=== PATIENT | female | born 1995 | race Caucasian/White ===

== ENCOUNTER 2020-08-29 17:49 | Emergency (ER) | payer MEDICAID ==
[2020-08-29] MEDS ORDERED: ZYRTEC10 M3 PO (18:07)
[2020-08-29] MEDS ORDERED: IPRATROPIUM BROM3 M1 IH (18:07)
[2020-08-29] MEDS ORDERED: ATARAX (18:07)
[2020-08-29] MEDS ORDERED: SINGULAIR PO (18:07)
[2020-08-29] MEDS ORDERED: ALBUTEROL2.5 MG/3 M IH (18:08)
[2020-08-29 18:46] LABS: EOS % 7.3 % (1.0-5.0); HEMOGLOBIN 12.5 g/dL (12.5-16.0); LYMPH# 2.3 (1.50-4.00); MEAN CELL VOLUME 78 fl (78-100); MEAN CORPUSCULAR HEMOGLOBIN 26 pg (27-31); MEAN CORPUSCULAR HGB CONC 33 g/dL (33-37); MEAN PLATELET VOLUME 10.5 fl (7.4-10.4); MONO # 1.3 (0.20-0.80); PLATELET COUNT 318 K/mm3 (130-400); RED BLOOD COUNT 4.89 M/mm3 (4.10-5.30); WHITE BLOOD COUNT 14.7 K/mm3 (4.8-10.8)
[2020-08-29 18:47] LABS: EOS # 1.1 (0.04-0.40); NEU # 10.1 (1.40-6.50); RED CELL DISTRIBUTION WIDTH 18.4 % (11.5-14.5)
[2020-08-29 18:59] LABS: CALCIUM 9.2 mg/dL (8.3-10.5)
[2020-08-29 19:00] LABS: TOTAL PROTEIN 6.7 g/dL (6.4-8.3)
[2020-08-29 19:02] LABS: TOTAL BILIRUBIN 0.8 mg/dL (0.2-1.2)
[2020-08-29 19:58] LABS: URINE APPEARANCE CLEAR; URINE BILIRUBIN NEGATIVE (NEGATIVE); URINE BLOOD NEGATIVE (NEGATIVE); URINE COLOR YELLOW; URINE GLUCOSE NEGATIVE (NEGATIVE); URINE KETONE NEGATIVE (NEGATIVE); URINE LEUKOCYTE ESTERASE NEGATIVE (NEGATIVE); URINE NITRATE NEGATIVE (NEGATIVE); URINE PROTEIN(semi-quant) TRACE mg/dL (NEGATIVE); URINE UROBILINOGEN NORMAL (NORMAL); URINE WBC 0-1 /hpf (0-3)
[2020-08-29] MEDS ORDERED: PREDNISONE20 MG PO (20:56)
[2020-08-29 21:02] VITALS: BP 115/82
[2020-08-30] MEDS ORDERED: PRILOSEC 20MG20 MG PO (02:12)
== END 2020-08-29 21:02 | disposition home or self-care (01) ==
LOC: ED 17:49
PROVIDERS: Nurse Practitioner
DX: O99.511 Diseases of the respiratory system complicating pregnancy, first trimester (principal); J45.901 Unspecified asthma with (acute) exacerbation; Z3A.08 8 weeks gestation of pregnancy; Z87.891 Personal history of nicotine dependence
CPT/HCPCS: J2405; J2930; J7030

== ENCOUNTER 2022-01-31 13:21 | Emergency (ER) | payer MEDICAID ==
[~2022-01-31] VITALS: Ht 160 cm; Wt 60.0 kg
[~2022-01-31 13:21] MED LIST: ALBUTEROL2.5 MG/3 M IH; ATARAX; IPRATROPIUM BROM3 M1 IH; PREDNISONE20 MG PO; PRILOSEC 20MG20 MG PO; SINGULAIR PO; ZYRTEC10 M3 PO
[2022-01-31] MEDS ORDERED: PREDNISONE20 M1 PO (14:05)
[2022-01-31] MEDS ORDERED: PREDNISONE20 MG PO (15:37)
[2022-01-31 16:00] VITALS: BP 143/85
== END 2022-01-31 15:55 | disposition home or self-care (01) ==
LOC: ED 13:21
DX: R05.9 Cough, unspecified (principal)
CPT/HCPCS: J2930

== ENCOUNTER 2022-04-24 06:57 | Emergency (ER) | payer MEDICAID ==
[~2022-04-24] VITALS: Ht 160 cm; Wt 60.0 kg
[~2022-04-24 06:57] MED LIST changes: +PREDNISONE20 M1 PO
[2022-04-24 07:25] LABS: BASO # 0.03 K/mm3 (0.02-0.10); EOS # 0.64 K/mm3 (0.04-0.40); EOS % 9.2 % (1.0-5.0); HEMATOCRIT 41.8 % (37.0-47.0); HEMOGLOBIN 13.5 g/dL (12.5-16.0); LYMPH# 2.62 K/mm3 (1.50-4.00); MEAN CELL VOLUME 84 fl (78-100); MEAN CORPUSCULAR HEMOGLOBIN 27 pg (27-31); MEAN CORPUSCULAR HGB CONC 32 g/dL (33-37); MEAN PLATELET VOLUME 11.3 fl (7.4-10.4); MONO # 0.57 K/mm3 (0.20-0.80); NEU # 3.05 K/mm3 (1.40-6.50); PLATELET COUNT 253 K/mm3 (130-400); RED BLOOD COUNT 4.99 M/mm3 (4.10-5.30); RED CELL DISTRIBUTION WIDTH 14.7 % (11.5-14.5); WHITE BLOOD COUNT 6.9 K/mm3 (4.8-10.8)
[2022-04-24 07:33] LABS: POTASSIUM 4.3 mmol/L (3.5-5.1)
[2022-04-24 07:34] LABS: CALCIUM 9.4 mg/dL (8.3-10.5)
[2022-04-24] MEDS ORDERED: SINGULAIR 110 MG/TAB PO (07:34)
[2022-04-24] MEDS ORDERED: SERTRALINE50 MG PO (07:34)
[2022-04-24 07:35] LABS: TOTAL PROTEIN 6.5 g/dL (6.4-8.3)
[2022-04-24] MEDS ORDERED: RT SPIRIVA INH18 MCG IH (07:35)
[2022-04-24] MEDS ORDERED: PROAIR HFA0.09 MG/AC IH (07:35)
[2022-04-24 07:37] LABS: TOTAL BILIRUBIN 0.5 mg/dL (0.2-1.2)
[2022-04-24 07:50] LABS: URINE APPEARANCE CLEAR; URINE BILIRUBIN NEGATIVE (NEGATIVE); URINE BLOOD NEGATIVE (NEGATIVE); URINE COLOR YELLOW; URINE GLUCOSE NEGATIVE (NEGATIVE); URINE KETONE NEGATIVE (NEGATIVE); URINE LEUKOCYTE ESTERASE NEGATIVE (NEGATIVE); URINE MUCUS PRESENT (NOT PRESENT); URINE NITRATE NEGATIVE (NEGATIVE); URINE PROTEIN(semi-quant) NEGATIVE (NEGATIVE); URINE UROBILINOGEN NORMAL (NORMAL)
[2022-04-24 10:15] VITALS: BP 112/62
== END 2022-04-24 10:35 | disposition short-term general hospital (02) ==
LOC: ED 06:57
PROVIDERS: Nurse Practitioner
DX: J45.901 Unspecified asthma with (acute) exacerbation (principal); Z91.040 Latex allergy status; Z20.822 Contact with and (suspected) exposure to COVID-19
CPT/HCPCS: J2060; J2405; J2930; J7030

== ENCOUNTER 2023-11-26 01:42 | Emergency (ER) | payer MEDICAID ==
[~2023-11-26] VITALS: Ht 162.6 cm; Wt 68.2 kg
[~2023-11-26 01:42] MED LIST changes: +ATIVAN0.5 MG PO; +BUSPIRONE5 MG PO; +LURASIDONE HCL20 MG PO; +PROAIR HFA0.09 MG/AC IH; +RT SPIRIVA INH18 MCG IH; +SERTRALINE50 MG PO; +SINGULAIR 110 MG/TAB PO
[2023-11-26] MEDS ORDERED: LEXAPRO5 MG PO (02:16)
[2023-11-26] MEDS ORDERED: PREDNISONE20 MG PO (03:20)
[2023-11-26 03:30] VITALS: BP 127/82
== END 2023-11-26 03:30 | disposition home or self-care (01) ==
LOC: ED 01:42
DX: J45.901 Unspecified asthma with (acute) exacerbation (principal); Z91.040 Latex allergy status
CPT/HCPCS: J7512

== ENCOUNTER 2023-12-08 16:11 | Emergency (ER) | payer MEDICAID ==
[~2023-12-08] VITALS: Ht 162.6 cm; Wt 68.2 kg
[~2023-12-08 16:11] MED LIST changes: +LEXAPRO5 MG PO
[2023-12-08 16:53] LABS: BASO # 0.02 K/mm3 (0.02-0.10); EOS # 0.65 K/mm3 (0.04-0.40); EOS % 7.2 % (1.0-5.0); HEMATOCRIT 38.3 % (37.0-47.0); HEMOGLOBIN 12.3 g/dL (12.5-16.0); LYMPH# 2.03 K/mm3 (1.50-4.00); MEAN CELL VOLUME 85 fl (78-100); MEAN CORPUSCULAR HEMOGLOBIN 27 pg (27-31); MEAN CORPUSCULAR HGB CONC 32 g/dL (33-37); MEAN PLATELET VOLUME 9.9 fl (7.4-10.4); MONO # 0.64 K/mm3 (0.20-0.80); NEU # 5.68 K/mm3 (1.40-6.50); PLATELET COUNT 262 K/mm3 (130-400); RED BLOOD COUNT 4.52 M/mm3 (4.10-5.30); RED CELL DISTRIBUTION WIDTH 14.6 % (11.5-14.5); WHITE BLOOD COUNT 9.1 K/mm3 (4.8-10.8)
[2023-12-08] MEDS ORDERED: RT SPIRIVA INH18 MCG (17:22)
[2023-12-08] MEDS ORDERED: DULERA1 ARO (17:22)
[2023-12-08] MEDS ORDERED: PREDNISONE20 M1 PO (17:52)
[2023-12-08 18:57] VITALS: BP 119/75
== END 2023-12-08 18:58 | disposition home or self-care (01) ==
LOC: ED 16:11
PROVIDERS: Family Medicine
DX: J45.901 Unspecified asthma with (acute) exacerbation (principal); Z91.040 Latex allergy status

== ENCOUNTER 2024-02-09 19:20 | Emergency (ER) | payer MEDICAID ==
[~2024-02-09 19:20] MED LIST changes: +DULERA1 ARO; +RT SPIRIVA INH18 MCG
[2024-02-09] MEDS ORDERED: methylPREDNISolone Sod Succ 125 MG/2 ML VIAL IV ONE (19:45)
[2024-02-09] MEDS ORDERED: Azithromycin 500 MG in NS 250 ML IV ONE (19:45)
[2024-02-09] MEDS ORDERED: MAGNESIUM SULFATE IV ONE (19:45)
[2024-02-09] MEDS ORDERED: DEXTROSE IV ONE (19:45)
[2024-02-09] MEDS ORDERED: Albuterol/Ipratropium 3 MG-0.5 MG/3 ML Neb Soln IH ONE ×2 (19:45→20:30)
[2024-02-09 19:53] LABS: BASO # 0.03 K/mm3 (0.02-0.10); EOS # 0.53 K/mm3 (0.04-0.40); EOS % 5.6 % (1.0-5.0); HEMATOCRIT 40.2 % (37.0-47.0); HEMOGLOBIN 13.2 g/dL (12.5-16.0); LYMPH# 3.25 K/mm3 (1.50-4.00); MEAN CELL VOLUME 84 fl (78-100); MEAN CORPUSCULAR HEMOGLOBIN 27 pg (27-31); MEAN CORPUSCULAR HGB CONC 33 g/dL (33-37); MEAN PLATELET VOLUME 10.3 fl (7.4-10.4); MONO # 0.72 K/mm3 (0.20-0.80); PLATELET COUNT 288 K/mm3 (130-400); RED BLOOD COUNT 4.81 M/mm3 (4.10-5.30); RED CELL DISTRIBUTION WIDTH 14.7 % (11.5-14.5); WHITE BLOOD COUNT 9.5 K/mm3 (4.8-10.8)
[2024-02-09 20:00] LABS: ALBUMIN 4.1 g/dL (3.5-5.0); SODIUM 141 mmol/L (136-145)
[2024-02-09 20:01] LABS: CALCIUM 10.2 mg/dL (8.3-10.5)
[2024-02-09 20:02] LABS: GLUCOSE 89 mg/dL (65-105); TOTAL PROTEIN 6.7 g/dL (6.4-8.3)
[2024-02-09 20:03] LABS: CARBON DIOXIDE 20 mmol/L (22-29)
[2024-02-09 20:04] LABS: TOTAL BILIRUBIN 1.2 mg/dL (0.2-1.2)
[2024-02-09 20:07] LABS: AST-SGOT 13 U/L (5-34)
[2024-02-09 20:09] LABS: ALT/SGPT 14 U/L (0-55)
[2024-02-09 20:15] LABS: TROPONIN-I < 0.030 ng/mL (0.00-0.033)
[2024-02-09 20:17] LABS: D-DIMER 0.7 mg/L FEU (0.15-0.50)
[2024-02-09] MEDS ORDERED: Iohexol 350 - 100 ML VIAL IV ONE (20:50)
[2024-02-09 22:01] VITALS: BP 121/86
[2024-02-09] MEDS ORDERED: PREDNISONE20 M1 PO (22:05)
[2024-02-09] MEDS ORDERED: ZITHROMAX 250M250 MG PO (22:05)
== END 2024-02-09 22:11 | disposition left against medical advice (07) ==
LOC: ED 19:20
PROVIDERS: Physician Assistant
DX: J45.51 Severe persistent asthma with (acute) exacerbation (principal); R79.89 Other specified abnormal findings of blood chemistry; J98.11 Atelectasis; J98.09 Other diseases of bronchus, not elsewhere classified; Z91.040 Latex allergy status
CPT/HCPCS: J0456; J2930; J3475; J7050; Q9967